=== PATIENT | female | born 1955 | race Caucasian/White ===

== ENCOUNTER 2018-02-20 11:44 | Outpatient (CLI) | payer OTHER, SELFPAY ==
--- NOTE | 2018-02-20 11:33 | DI.RAD_ITS ---
SYMPTOM/DIAGNOSIS: WORSENING LT SHOULDER PAIN, KNOWN BONE SPUR AC JOINT, M75.80 LEFT SHOULDER: There are severe degenerative changes of the glenohumeral joint. There is subchondral cysts on both sides of the joint. There is spurring from the glenoid and inferior humeral head. There is spurring at the AC joint and undersurface of the acromion. IMPRESSION: Severe degenerative changes of the glenohumeral joint.
[2018-02-20 12:39] LABS: Abs Immature Grans 0.02 k/cumm (0.0-0.09); Absolute Basophil Count 0.23 k/cumm (0.0-0.2); Absolute Eosinophil Count 0.27 k/cumm (0.0-0.7); Absolute Lymphocyte Count 2.54 k/cumm (1.2-3.4); Absolute Monocyte Count 0.71 k/cumm (0.11-0.7); Absolute Neutrophil Count 3.38 k/cumm (1.2-6.7); Basophils % 3.2; Eosinophils % 3.8; HCT 40.1 % (36.0-46.0); Immature Grans % 0.3; Lymphocytes % 35.5; Mean Corp. HGB Concentration 34.9 g/dL (32.0-36.0); Mean Corpuscular Hemoglobin 30.7 pg (27.0-33.0); Mean Corpuscular Volume 87.9 fL (80-95); Mean Platelet Volume 9.7 fL (8.0-11.0); Monocytes % 9.9; Neutrophils % 47.3; Platelet Count 443 x1000/uL (130-400); RBC 4.56 m/cumm (4.00-5.20); RBC Distribution Width 12.4 % (11.7-14.6); White Blood Cell Count 7.15 k/cumm (4.4-10.8)
[2018-02-20 13:13] LABS: C-Reactive Protein 0.36 mg/dL (0.0-0.3)
[2018-02-21 10:55] LABS: Rheumatoid Factor <8 IU/mL (<12.5)
[2018-02-21 11:45] LABS: Lyme Ab w Rflx to Lyme Confirm Negative
[2018-02-22 17:57] LABS: Anaplasma phagocytophilum Negative (Negative); B. miyamotoi PCR Negative (Negative); Babesia divergens/MO-1 Negative (Negative); Babesia duncani Negative (Negative); Babesia microti Negative (Negative); Ehrlichia chaffeensis Negative (Negative); Ehrlichia ewingii/canis Negative (Negative); Ehrlichia muris eauclairensis Negative (Negative)
== END 2018-02-20 12:04 ==
PROVIDERS: PCP Family Medicine; Visit Provider Family Medicine
DX: M13.0 Polyarthritis, unspecified (principal); M25.512 Pain in left shoulder; M75.82 Other shoulder lesions, left shoulder; M19.012 Primary osteoarthritis, left shoulder
CPT/HCPCS: 36415; 73030; 85025; 86140; 86431; 86618; 87798

== ENCOUNTER 2018-04-04 16:36 | Outpatient (CLI) | payer OTHER, SELFPAY ==
--- NOTE | 2018-04-04 17:00 | DI.MAMMO_ITS ---
SYMPTOMS/DIAGNOSIS: SCREENING, Z12.31 BILATERAL SCREENING MAMMOGRAM: Mammograms were interpreted according to the usual protocol including computer analysis with CAD system, tomosynthesis and C view imaging. Comparison is made with 2011. The breasts are composed of scattered fibroglandular densities, breast density category B. No suspicious masses or suspicious microcalcifications are seen. There has been no significant change. IMPRESSION: Category 1B, negative mammogram. Yearly screening mammography is recommended. [facility] ASSESSMENT OF FINDINGS: Negative. Category 1. Patient will receive a letter notifying them of these results. BI-RADS category B. There are scattered areas of fibroglandular density.
== END 2018-04-04 16:56 ==
PROVIDERS: PCP Family Medicine; Visit Provider Family Medicine
DX: Z12.31 Encounter for screening mammogram for malignant neoplasm of breast (principal)
CPT/HCPCS: 77063; 77067

== ENCOUNTER 2019-04-15 08:25 | Outpatient (CLI) | payer OTHER, SELFPAY ==
[2019-04-15 09:22] LABS: Calculated LDL 125 mg/dL; Cholesterol 198 mg/dL (<200); HDL Cholesterol 54 mg/dL (40-60); Triglyceride 96 mg/dL (<150)
== END 2019-04-15 08:45 ==
PROVIDERS: PCP Family Medicine; Visit Provider Family Medicine
DX: E78.5 Hyperlipidemia, unspecified (principal)
CPT/HCPCS: 36415; 80053; 80061

== ENCOUNTER 2019-06-03 09:36 | Outpatient (CLI) | payer OTHER, SELFPAY ==
[2019-06-03 11:10] LABS: ALT 38 U/L (14-59); AST 21 U/L (15-37); Albumin 3.7 g/dL (3.4-5.0); Alkaline Phosphatase 101 U/L (46-116); Anion Gap 7.5 mmol/L (3-11); BUN 24 mg/dL (7-18); Bilirubin, Total 0.4 mg/dL (0.2-1.0); CO2 28.5 mmol/L (21.0-32.0); CREATININE 0.97 mg/dL (0.55-1.02); Chloride 105 mmol/L (98-107); Glucose 91 mg/dL (74-106); Potassium 4.3 mmol/L (3.5-5.1); Sodium 141 mmol/L (136-145); Total Protein 6.7 g/dL (6.4-8.2)
== END 2019-06-03 09:56 ==
PROVIDERS: PCP Family Medicine; Visit Provider Family Medicine
DX: I10 Essential (primary) hypertension (principal)
CPT/HCPCS: 36415; 80053

== ENCOUNTER 2019-07-01 01:38 | Outpatient (CLI) | payer OTHER, SELFPAY ==
--- NOTE | 2019-07-01 13:45 | DI.CTLCSR_ITS ---
EXAM: CT CHEST LUNG CANCER SCREEN CLINICAL HISTORY: SCREENING FOR LUNG CANCER, NICOTINE DEPENDENCE, F17.210 TECHNIQUE: Low-dose noncontrast screening protocol. COMPARISON: none FINDINGS: Heart size is normal. The aorta is normal in diameter and shows mild calcification. Coronary artery c alcifications are seen. There are no pleural or pericardial effusions or evidence of adenopathy. Ther e are a few scattered calcified pulmonary nodules. Two tiny nodules are seen at the right lung apex m easuring 2 and 3 millimeters in size. No suspicious nodules are identified. There are flowing osteoph ytes in the thoracic spine. The visualized portions of the upper abdomen show calcified gallstone and cyst at the upper pole of the right kidney. IMPRESSION: Lung RADS category 2. Annual low-dose screening chest CT is recommended. Lung RADS Cat 2 - Benign Appearance / Behavior: Nodules with a very low likelihood of becoming a clin ically active caner due to size or lack of growth
== END 2019-07-01 01:58 ==
PROVIDERS: PCP Family Medicine; Visit Provider Family Medicine
DX: Z12.2 Encounter for screening for malignant neoplasm of respiratory organs (principal); F17.210 Nicotine dependence, cigarettes, uncomplicated; R91.8 Other nonspecific abnormal finding of lung field
CPT/HCPCS: G0297

== ENCOUNTER 2020-02-27 07:34 | Outpatient (CLI) | payer OTHER, SELFPAY ==
[2020-03-02 20:59] LABS: Patient Race White; SARS-CoV-2 RNA Undetected (Undetected); SARS-CoV-2 Specimen Source Nasal
== END 2020-02-27 07:54 ==
PROVIDERS: PCP Family Medicine; Visit Provider Nurse Practitioner Adult Health
DX: R06.02 Shortness of breath (principal); R68.83 Chills (without fever); R09.81 Nasal congestion
CPT/HCPCS: U0003

== ENCOUNTER 2020-06-18 17:17 | Outpatient (REF) | payer OTHER, SELFPAY ==
--- NOTE | 2020-06-18 09:20 | PAPFT_PTH ---
PATIENT: Kerry Figueroa LOC: [facility] U#:[id number] AGE/SX: 65/F ROOM: RE06/18/[address]: Chani Crawford APRN : 1955 BED: DIS: 06/18/2020 SPEC #: [id number] RECD: 06/18/20 18:04 STATUS: ROSITA ARANA #: [id number] PRECIOUS: 06/18/20 09:[address]: Chani Crawford DEPT: [facility] Cytology RECD BY: Debbi Eid ENTERED: 06/18/20 18:05 SP TYPE: PAPFT OTHR DR: Randy Short, Tissues: 1 - CX/ENDOCX FOR PAP SMEARS Procedures: PAP THIN PREP/[facility] Screening Comments: [id number]
== END 2020-06-18 17:18 | disposition home or self-care (01) ==
LOC: LBN 17:17
PROVIDERS: PCP Family Medicine; Visit Provider Nurse Practitioner
DX: Z12.4 Encounter for screening for malignant neoplasm of cervix (principal)
CPT/HCPCS: 88142

== ENCOUNTER 2020-06-26 02:55 | Outpatient (CLI) | payer OTHER, SELFPAY ==
--- NOTE | 2020-06-26 08:15 | DI.MAMMO_ITS ---
EXAM: MAMMO SCREENING CLINICAL HISTORY: screening,z12.39 TECHNIQUE: Mammograms were interpreted according to the usual protocol including computer analysis w [employer] CAD system, tomosynthesis and C-view imaging. COMPARISON: 2010 through 2017 FINDINGS: The breasts are composed of scattered fibroglandular densities, Breast Density category B. No suspicious masses or suspicious microcalcifications are seen. No skin thickening or abnormal axillary lymph nodes are seen. There has been no significant change from prior exams. IMPRESSION: BI-RADS Category 1, Negative mammogram Yearly screening mammography is recommended. Breast Density - Category B, scattered fibroglandular densities. A negative radiographic report should not delay biopsy if a dominant or clinically suspicious mass is present. Up to ten percent of cancers are not identified on mammography. A negative report may reinforce clinical impression. Adenosis and dense breasts may obscure an underlying neoplasm. False positive reports average 6 to 10%. Patient will receive a letter notifying them of these results.
== END 2020-06-26 02:56 ==
LOC: DI 03:04
PROVIDERS: PCP Family Medicine; Visit Provider Family Medicine
DX: Z12.31 Encounter for screening mammogram for malignant neoplasm of breast (principal)
CPT/HCPCS: 77063; 77067

== ENCOUNTER 2021-12-14 01:47 | Outpatient (CLI) | payer OTHER, SELFPAY ==
[2021-12-14 16:16] LABS: Anion Gap 11.5 mmol/L (3-11); BUN 17 mg/dL (7-18); CO2 26.5 mmol/L (21.0-32.0); CREATININE 1.2 mg/dL (0.55-1.02); Chloride 105 mmol/L (98-107); Estimated GFR 45.09 (mL/min/1.73m2); Glucose 106 mg/dL (74-106); Sodium 143 mmol/L (136-145)
[2021-12-15 11:28] LABS: Hepatitis C Ab w Rflx HCV PCR Negative (Negative)
== END 2021-12-14 01:48 | disposition home or self-care (01) ==
LOC: LBO 01:47
PROVIDERS: PCP Family Medicine; Visit Provider Family Medicine
DX: I10 Essential (primary) hypertension (principal); Z11.59 Encounter for screening for other viral diseases; Z11.3 Encounter for screening for infections with a predominantly sexual mode of transmission
CPT/HCPCS: 36415; 80048; 86803

== ENCOUNTER 2022-03-14 04:18 | Outpatient (CLI) | payer OTHER, SELFPAY ==
[2022-03-14 09:48] LABS: Anion Gap 7.3 mmol/L (3-11); BUN 15 mg/dL (7-18); CO2 30.7 mmol/L (21.0-32.0); CREATININE 1.1 mg/dL (0.55-1.02); Calcium 10.1 mg/dL (8.5-10.1); Chloride 105 mmol/L (98-107); Estimated GFR 55.76 (mL/min/1.73m2); Glucose 87 mg/dL (74-106); Potassium 3.3 mmol/L (3.5-5.1); Sodium 143 mmol/L (136-145)
== END 2022-03-14 04:19 | disposition home or self-care (01) ==
LOC: LBO 04:18
PROVIDERS: PCP Family Medicine; Visit Provider Family Medicine
DX: E87.6 Hypokalemia (principal)
CPT/HCPCS: 36415; 80048

== ENCOUNTER → 2022-04-06 03:07 | Outpatient (CLI) | payer OTHER, SELFPAY ==
--- NOTE | 2022-04-06 06:45 | DI.DEXA_ITS ---
Exam(s) XR DEXA BONE DENSITY W/WO CARLIN EXAM: XR DEXA BONE DENSITY W/WO CARLIN CLINICAL HISTORY: screening for osteoporosis in postmenopausal woman,z78.0 TECHNIQUE: COMPARISON: No exams were available for comparison FINDINGS: DEXA scan was performed according to the usual protocol. Left hip scanning shows T-score -0.5 with l eft femoral neck T-score -1.6. Lumbar spine scanning shows T-score -0.8. Left forearm scanning shows T-score -0.8. IMPRESSION: The measurements are consistent with osteopenia according to the WHO criteria. The lateral vertebral scanogram shows no evidence of a vertebral compression fracture. RADIATION DOSE DELIVERED: Total DLP
--- NOTE | 2022-04-06 06:45 | DI.CTLCSR_ITS ---
Exam(s) CT CHEST LUNG CANCER SCREEN EXAM: CT CHEST LUNG CANCER SCREEN CLINICAL HISTORY: Screening for lung cancer,current smoker, f17.210 TECHNIQUE: CT examination of the chest was performed utilizing low-dose lung cancer screening protoc ol. COMPARISON: CT CT CHEST LUNG CANCER SCREEN from 07/01/2019 FINDINGS: Images obtained through the upper abdomen show unremarkable appearance of visualized portions of the liver and spleen. Cholelithiasis noted. Right renal cyst noted. Coronary artery calcification noted There is no mediastinal or hilar adenopathy. Mediastinal vascular structures appear intact by noncon trast criteria. Tracheobronchial tree appears intact. No pleural effusion or pleural-based mass. The lungs are predominantly clear with multiple small calcified pulmonary nodules noted consistent wi th healed granulomas. No new suspicious noncalcified nodule. IMPRESSION: Lung RADS Cat 2 - Benign Appearance / Behavior: Nodules with a very low likelihood of becoming a cli nically active cancer due to size or lack of growth Continue annual screening with LDCT in 12 months. Lung-RADS 1.0 CATEGORIES: Category 0 - Prior chest CT exam(s) being located for comparison. Category 1 - Annual screening in 12 months. No nodules or definitely benign nodules. Category 2 - Annual screening in 12 months. Benign appearance. Nodules with low likelihood of becomin g active cancer. Category 3 - 6-month follow-up. Probably benign. Short-term follow-up suggested. Nodules with low lik elihood of becoming active cancer. Category 4A - 3-month follow-up and CT/PET if >8 mm in size. Suspicious finding. Findings which requi re additional testing. Category 4B - Findings which require additional testing and tissue sampling. Suspicious finding. Category 4X - Category 3 or 4 nodules with additional features or imaging findings that increases the suspicion of malignancy. Modifier S- Potentially clinically significant finding. (Non lung cancer) RADIATION DOSE DELIVERED: 79.9mGy.cmTotal DLP !Error 1.84mGyCTDIvol 79.9mGy.cm Total DLP DATA REPOSITORY: All CT scans at this facility are submitted to the National Radiology Data Registry (NRDR) Dose Index Registry (DIR) with the [employer] (ACR). RADIATION OPTIMIZATION: All CT scans at this facility use at least one of these dose optimization te chniques: automated exposure control; mA and/or kV adjustment per patient size (includes targeted exa ms where dose is matched to clinical indication); or iterative reconstruction.
--- NOTE | 2022-04-06 06:45 | DI.MAMMO_ITS ---
Exam(s) MAMMO SCREENING EXAM: MAMMO SCREENING CLINICAL HISTORY: screening,z12.39 TECHNIQUE: Mammograms were interpreted according to the usual protocol including computer analysis w [employer] CAD system, tomosynthesis and C-view imaging. COMPARISON: FINDINGS: The breasts are of moderate density with fairly symmetrical distribution of fibroglandular tissue. N o dominant mass or clumped microcalcification is identified in either breast. The current examinatio n is compared with previous examinations including June 2020 and there has been no gross interval change in appearance in comparison with prior studies. IMPRESSION: No specific evidence of malignancy at this time. Routine screening examinations are suggested at yea rly intervals in this age group according to the ACS ACR guidelines. BI-RADS Category 1 - Negative Breast Density - Category B - Scattered areas of fibroglandular density
== END ==
PROVIDERS: PCP Family Medicine; Visit Provider Family Medicine
DX: Z12.31 Encounter for screening mammogram for malignant neoplasm of breast (principal); Z12.2 Encounter for screening for malignant neoplasm of respiratory organs; F17.210 Nicotine dependence, cigarettes, uncomplicated; R91.8 Other nonspecific abnormal finding of lung field; M85.88 Other specified disorders of bone density and structure, other site; Z78.0 Asymptomatic menopausal state
CPT/HCPCS: 71271; 77063; 77067; 77080

== ENCOUNTER 2022-09-07 02:18 | Outpatient (CLI) | payer OTHER, SELFPAY ==
[2022-09-07 14:31] LABS: Anion Gap 10.2 mmol/L (3-11); BUN 18 mg/dL (7-18); CO2 26.8 mmol/L (21.0-32.0); CREATININE 1.1 mg/dL (0.55-1.02); Chloride 106 mmol/L (98-107); Estimated GFR 55.42 (mL/min/1.73m2); Glucose 104 mg/dL (74-106); Potassium 3.6 mmol/L (3.5-5.1); Sodium 143 mmol/L (136-145)
== END 2022-09-07 02:19 | disposition home or self-care (01) ==
LOC: LBO 02:18
PROVIDERS: PCP Family Medicine; Visit Provider Family Medicine
DX: E87.6 Hypokalemia (principal); I10 Essential (primary) hypertension
CPT/HCPCS: 36415; 80048

== ENCOUNTER 2022-09-20 11:51 | Outpatient (REF) | payer OTHER, SELFPAY ==
--- NOTE | 2022-09-20 11:45 | SKI_PTH ---
PATIENT: Kerry Figueroa LOC: [facility] U#:[id number] AGE/SX: 67/F ROOM: RE09/20/[address]: Cynthia Sol MD : 1955 BED: DIS: 09/20/2022 SPEC #: [id number] RECD: 09/20/22 12:48 STATUS: ROSITA REQ #: [id number] PRECIOUS: 09/20/22 11:[address]: Cynthia Sol DEPT: Surgical Specimen RECD BY: Debbi Eid ENTERED: 09/20/22 12:49 SP TYPE: MAMADOU WHITLEY DR: Randy Short DO Tissues: 1 - SKIN BIOPSY(SHAVE/PUNCH) Procedures: SKIN LEVEL 4 Comments: [id number]
== END 2022-09-20 11:52 | disposition home or self-care (01) ==
LOC: LBN 11:51
PROVIDERS: PCP Family Medicine; Visit Provider Surgery
DX: B07.8 Other viral warts (principal)
CPT/HCPCS: 88305

== ENCOUNTER 2023-11-01 02:19 | Outpatient (CLI) | payer OTHER, SELFPAY ==
[2023-11-01 08:55] LABS: Anion Gap 5.7 mmol/L (3-11); BUN 9 mg/dL (7-18); CO2 30.3 mmol/L (21.0-32.0); Chloride 105 mmol/L (98-107); Estimated GFR 61.75 (mL/min/1.73m2); Glucose 99 mg/dL (74-106); Potassium 3.6 mmol/L (3.5-5.1); Sodium 141 mmol/L (136-145)
== END 2023-11-01 02:20 | disposition home or self-care (01) ==
LOC: LBO 02:20
PROVIDERS: Absent Provider Family Medicine; PCP Family Medicine; Visit Provider Family Medicine
DX: I10 Essential (primary) hypertension (principal)
CPT/HCPCS: 36415; 80048

== ENCOUNTER 2024-06-21 00:19 | Outpatient (CLI) | payer OTHER, SELFPAY ==
--- NOTE | 2024-06-21 09:25 | DI.MAMMO_ITS ---
Exam(s) MAMMO SCREENING EXAM: MAMMO SCREENING CLINICAL HISTORY: screening,z12.39 TECHNIQUE: Bilateral full field digital CC and MLO mammographic images were obtained with 3D tomosyn thesis and utilizing computer aided detection (CAD). COMPARISON: Available for comparison. FINDINGS: Masses/Architectural Distortion: The nodule in the posterior upper right breast is unchanged compared to the prior examinations. No new nodules are seen. No areas of architectural distortion are prese nt. Microcalcifications: No suspicious pleomorphic-type are seen. Skin Thickening/Nipple Retraction: None. IMPRESSION: 1. No significant interval change with no specific features of malignancy noted. 2. Unless there is more urgent need, screening mammography is recommended, as per [employer] guidelines. BI-RADS Category 2 - Benign Findings Breast Density - Category B - Scattered areas of fibroglandular density Breast density category C or D implies that the patient has dense breast tissue. Dense breast tissue is very common and is not abnormal but dense breast tissue can make it harder to find cancer on a ma mmogram. Also, dense breast tissue may increase their breast cancer risk. This information about the result of the mammogram report was provided to the patient to raise their awareness. Use this report when you speak with the patient about their risks for breast cancer, which includes their family hist ory. At that time, you may recommend for more screening tests (Ultrasound or MRI) as they might be us eful based on their risk. A negative radiographic report should not delay biopsy if a dominant or clinically suspicious mass is present. Up to ten percent of cancers are not identified on mammography. A negative report may reinforce clinical impression. Adenosis and dense breasts may obscure an underlying neoplasm. False positive reports average 6 to 10%. Patient will receive a letter notifying them of these results.
== END 2024-06-21 00:39 ==
LOC: DI 00:20
PROVIDERS: PCP Family Medicine; Visit Provider Family Medicine
DX: Z12.31 Encounter for screening mammogram for malignant neoplasm of breast (principal); R92.323 Mammographic fibroglandular density, bilateral breasts; D24.1 Benign neoplasm of right breast
CPT/HCPCS: 77063; 77067

== ENCOUNTER 2024-12-23 10:16 | Outpatient (CLI) | payer OTHER, SELFPAY ==
--- NOTE | 2024-12-23 06:15 | ETT_ITS ---
APPROVED REPORT Exam: Exercise Treadmill Patient Location: Out-Patient Room/Bed: Stress Nurse: Na Terrazas RN Ordering Provider:BRADLEY VARGHESE, Contact Number: [phone] BMI: 21.46 Baseline Rhythm: Sinus Rhythm Indications: Chest pressure, Medical History Medical History: Covid 19, tobacco abuse, CKD, nicotine dependence, depression, anxiety, GERD, COPD, HLD, HTN Cardiac Medications: Amlodipine, aspirin, duloxetine, EpiPen, fenofibrate, losartan-hydrochlorothiazide, nitro, omeprazole, magnesium-potassium Allergies: Codeine, bee venom Cardiac Risk Factors: Family hx, HTN, HLD, COPD, smoker Previous Cardiac Procedures: None Pretest Chest Pain Characteristics: None Exercise History: Indeterminate Physical Disabilities: None Lung Sounds: Clear to auscultation Heart Sounds: Irregular Stress Test Details Test: Exercise stress testing was performed using a Kwame protocol. Rest Stress HR Resting HR Supine: 70 bpm Max Heart Rate (APMHR): 152 bpm Resting HR Standin bpm Target HR (85% APMHR): 129 bpm Max HR Achieved: Unable to obtain due to artifact bpm Recovery HR: 72 bpm BP Resting BP Supine: 128/74 mmHg Resting BP Standin/78 mmHg Max BP: 158/68 mmHg Recovery BP: 118/70 mmHg BP response to stress: Normal blood pressure response to stress. ECG Resting ECG: Sinus Rhythm Ectopy: Occasional PVC's, bigeminy, occasional PAC's Stress ECG: Unable to obtain due to significant artifact with movement ST Change: Unable to assess due to significant artifact with movement Arrhythmia: Unable to assess due to significant artifact with movement Recovery ECG: Sinus Rhythm Recovery ST Change: Non diagnositc due to significant artifact with movement during exercise Recovery Arrhythmia: Occasional PVC's Clinical Reason for Termination: Significant artifact Stress Symptoms: Mod SOB Exercise duration: 01 min38 sec Highest Stage Reached: Stage 1: 1.7 mph at 10% grade. Exercise capacity: 3.79 METs Angina Score: None Rawls Treadmill Score: 0.3 Rate Pressure Product: 0 Stress ECG Conclusion 1. Resting electrocardiogram was normal 2. Patient exercised briefly on the treadmill for 1 minute and 38 seconds, a workload of the less than 4 METS 3. The electrocardiogram with exercise became uninterpretable due to artifact 4. No conclusions could be drawn as to presence or absence of myocardial ischemia. Exercise capacity was quite poor 5. Suggest repeat with pharmacologic stress if clinically indicated Rawls Treadmill Score is 0.3 which is Moderate risk. Stress Test Summary STAGE Time (mins) Speed (mph) Grade (%) HR BP SpO2 SYMPTOMS METS Supine 71 128/74 Standing 72 114/78 1 min recovery 90 158/68 3 min recovery 70 128/78 6 min recovery 72 118/70 Test stopped r/t inability to read EKG due to significant artifact with any movement. Patient c/o mod SOB. Unbale to assess accurate HR during exercise. SOB resolved by end of recovery. Patient left ambulatory in no apparent distress.
== END 2024-12-23 10:36 ==
LOC: DI 10:16
PROVIDERS: PCP Family Medicine; Visit Provider Family Medicine
DX: R07.89 Other chest pain (principal)
CPT/HCPCS: 93017